=== PATIENT | male | born 1965 | race Two or more races ===

== ENCOUNTER 2020-05-23 11:11 | Outpatient (CLI) | payer OTHER | END 2020-05-23 11:16 | disposition home or self-care (01) | LOC: NUCLEAR 11:11 | PROVIDERS: ATTEND General Practice | DX: M81.0 Age-related osteoporosis without current pathological fracture (principal) ==

== ENCOUNTER 2021-12-30 07:58 | Outpatient (CLI) | payer OTHER | END 2021-12-30 16:17 | disposition home or self-care (01) | LOC: SONOGRAMA 07:58 | PROVIDERS: ATTEND General Practice | DX: N40.1 Benign prostatic hyperplasia with lower urinary tract symptoms (principal); N52.9 Male erectile dysfunction, unspecified; I10 Essential (primary) hypertension; R35.0 Frequency of micturition; R73.03 Prediabetes; R39.16 Straining to void; R39.12 Poor urinary stream; Z87.442 Personal history of urinary calculi; A63.0 Anogenital (venereal) warts; Z86.19 Personal history of other infectious and parasitic diseases ==